=== PATIENT | male | born 1945 | race Caucasian/White ===

== ENCOUNTER 2018-10-18 12:38 | Day surgery (SDC) | payer MEDICARE, BC ==
[2018-10-18] MEDS ORDERED: LIDOCAINE 2% JELLY 5 ML (13:00)
== END 2018-10-18 16:23 | disposition home or self-care (01) ==
LOC: GIL 12:38
DX: Z80.0 Family history of malignant neoplasm of digestive organs (principal); K57.30 Diverticulosis of large intestine without perforation or abscess without bleeding; K44.9 Diaphragmatic hernia without obstruction or gangrene; I11.0 Hypertensive heart disease with heart failure; I50.9 Heart failure, unspecified; I25.10 Atherosclerotic heart disease of native coronary artery without angina pectoris; I25.2 Old myocardial infarction
CPT/HCPCS: 43239; 88305; 88312